=== PATIENT | male | born 1960 | race Caucasian/White ===

== ENCOUNTER 2017-10-05 11:10 | Emergency (ER) | payer BC ==
[2017-10-05] MEDS ORDERED: KETOROLAC 30 MG/ML INJ ONE (11:27)
[2017-10-05 12:16] LABS: Urine Blood TRACE (NEG); Urine Glucose NEGATIVE (NEG); Urine Protein NEGATIVE (NEG)
--- NOTE | 2017-10-05 12:19 | RAD REPORT ---
EXAM DESCRIPTION: CTSpine Lumbar Wo Con10/05/2017 11:54 am CLINICAL HISTORY: Back injury with back pain and radiculopathy status post fall from a ladder COMPARISON: None TECHNIQUE: Computed axial tomography lumbar spine was obtained with coronal and sagittal reconstruct ion. All CT scans are performed using dose optimization technique as appropriate and may include automated exposure control or mA/KV adjustment according to patient size. FINDINGS: Mild to moderate compression fracture involves the superior endplate of the L2 vertebral b regine. Retropulsion of fracture fragment into the spinal canal is not present. The posterior elements a re not involved. Compression of the vertebral body is estimated to be approximately 25% No dislocation is noted. Spinal stenosis is not seen IMPRESSION: Mild to moderate compression fracture involving the L2 vertebral body.
--- NOTE | 2017-10-05 12:30 | ER ---
Nurse's Notes [facility] Name: Dexter Rosen Age: 57 yrs Sex: Male : 1960 Arrival Date: 10/05/2017 Time: 11:12 Bed 6 Private MD: Diagnosis: Wedge compression fracture of second lumbar vertebra Presentation: 10/05 11:13 Presenting complaint: Patient states: "I fell off a roof about 10 ft, I landed on my aa5 hands and knees". pt denies head injury, denies LOC. Pt c/o lower back pain. Pt ambulated to triage. 11:13 Transition of care: patient was not received from another setting of care. Onset of aa5 symptoms was October 05, 2017. Risk Assessment: Do you want to hurt yourself or someone else? Patient reports no desire to harm self or others. Initial Sepsis Screen: Does the patient meet any 2 criteria? No. Patient's initial sepsis screen is negative. Does the patient have a suspected source of infection? No. Patient's initial sepsis screen is negative. Care prior to arrival: None. 11:13 Method Of Arrival: Ambulatory aa5 11:13 Acuity: KAMLESH 3 aa5 11:38 Mechanism of Injury: Fall from ladder approximately 10 feet. jl7 11:38 Trauma event details: Injury occurred in the [facility], Injury occurred: at [facility]. Injury occurred: October 05, 2017 Injury occurred at: 10:00. Triage Assessment: 11:35 General: Appears in no apparent distress. uncomfortable, Behavior is calm, cooperative, jl7 appropriate for age. Pain: Complains of pain in low back area Pain currently is 8 out of 10 on a pain scale. Neuro: Level of Consciousness is awake, alert, obeys commands, Oriented to person, place, time, situation, Conche Operator are equal bilaterally Moves all extremities. Gait is steady. Cardiovascular: Patient's skin is warm and dry. Respiratory: Airway is patent Respiratory effort is even, unlabored, Respiratory pattern is regular, symmetrical. GI: No signs and/or symptoms were reported involving the gastrointestinal system. : No signs and/or symptoms were reported regarding the genitourinary system. Derm: Skin is pink, warm \\T\\ dry. Musculoskeletal: Range of motion: intact in all extremities. Trauma Activation: Not Applicable Physician: ED Physician; Name: ; Notified At: ; Arrived At: Physician: General Surgeon; Name: ; Notified At: ; Arrived At: Physician: Radiology; Name: ; Notified At: ; Arrived At: Physician: Respiratory; Name: ; Notified At: ; Arrived At: Physician: Lab; Name: ; Notified At: ; Arrived At: Historical: - Allergies: 11:13 Tylenol; aa5 - PMHx: 11:13 None; aa5 - PSHx: 11:13 None; aa5 - Immunization history:: Adult Immunizations up to date. - Social history:: Smoking status: Patient/guardian denies using tobacco. - Immunization history: Last tetanus immunization: unknown. - Ebola Screening: : No symptoms or risks identified at this time. Screenin:15 Abuse screen: Denies threats or abuse. Denies injuries from another. Tuberculosis jl7 screening: No symptoms or risk factors identified. 11:15 Nutritional screening: No deficits noted. Fall Risk Gait- Impaired (20 pts.). Total jl7 Cortes Fall Scale indicates No Risk (0-24 pts). Primary Survey: 11:15 A: Airway: patent. Breathing/Chest: Respiratory pattern: regular, Respiratory effort: jl7 spontaneous, unlabored, Breath sounds: clear, Chest inspection: symmetrical rise and fall of the chest. Circulation: Heart tones present. Skin color: pink. Disability Alert. 11:30 Reassessment Airway Airway Patent Breathing/Chest Respiratory pattern Regular jl7 Respiratory effort Spontaneous Unlabored Circulation Heart tones Present Pulses Palpable Color [place] Disability Alert. Secondary Survey: 11:30 HEENT: No deficits noted. Gastrointestinal: No deficits noted. : No deficits noted. jl7 Musculoskeletal: Tenderness present in low back area. Assessment: 11:15 General: See triage and trauma charting. jl7 12:15 Reassessment: Patient appears in no apparent distress at this time. Patient and/or jl7 family updated on plan of care and expected duration. Pain level reassessed. Patient is alert, oriented x 3, equal unlabored respirations, skin warm/dry/pink. 12:40 Reassessment: Pt reports decreased pain at this time. jl7 Vital Signs: 11:15 BP 136 / 84; Pulse 94; Resp 16 S; Pulse Ox 98% on R/A; Pain 8/10; jl7 [place] Coma Score: 11:15 Eye Response: spontaneous(4). Verbal Response: oriented(5). Motor Response: obeys jl7 commands(6). Total: 15. Trauma Score (Adult): 11:15 Eye Response: spontaneous(1); Verbal Response: oriented(1); Motor Response: obeys jl7 commands(2); Systolic BP: > 89 mm Hg(4); Respiratory Rate: 10 to 29 per min(4); [place] Score: 15; Trauma Score: 12 ED Course: 11:12 Patient arrived in ED. rg4 11:13 Arm band placed on Patient placed in an exam room, on a stretcher. aa5 11:15 Bimal Otero, RN is Primary Nurse. hj 11:15 Patient has correct armband on for positive identification. Placed in gown. Bed in low jl7 position. Call light in reach. Side rails up X 1. 11:15 Pulse ox on. NIBP on. jl7 11:15 Patient maintains SpO2 saturation greater than 95% on room air. Thermoregulation: warm jl7 blanket given to patient. 11:17 Concha Babcock FNP-C is PHCP. snw 11:17 Israel Weathers MD is Attending Physician. snw 11:18 PHCP role handed off by Concha Babcock FNP-C kb 11:18 Nadia Mayes FNP-C is PHCP. kb 11:19 Triage completed. aa5 11:27 Luci Blakely, HERO is Primary Nurse. jl7 11:53 CT completed. Patient tolerated procedure well. Patient moved back from CT. bq 11:53 CT Lumbar Spine Wo Con In Process Unspecified. EDMS 12:58 No provider procedures requiring assistance completed. Patient did not have IV access jl7 during this emergency room visit. Administered Medications: 11:28 Drug: TORadol 60 mg Route: IM; Site: left gluteus; jl7 12:59 Follow up: Response: No adverse reaction; Pain is decreased jl7 Intake: 12:57 PO: 0ml; IV: 0ml; Tubes: 0ml (); Total: 0ml. jl7 Output: 12:57 Urine: 100ml (Voided); Total: 100ml. jl7 Outcome: 12:28 Discharge ordered by . kb 12:57 Patient's length of stay was not longer than 2 hours. jl7 12:57 Discharged to home ambulatory. jl7 12:57 Condition: stable 12:57 Discharge instructions given to patient, family, Instructed on discharge instructions, follow up and referral plans. medication usage, Demonstrated understanding of instructions, follow-up care, medications, Prescriptions given X 1. 12:59 Patient left the ED. jl7 Signatures: Dispatcher [employer] EDMS Nadia Mayes, BACKEND PYTHON DEVELOPER-C BACKEND PYTHON DEVELOPER-Ckb Concha Babcock, BACKEND PYTHON DEVELOPER-C BACKEND PYTHON DEVELOPER-Csnw Muna Augustin Audri, RN RN aa5 Bimal Otero RN RN hj Garcia, Rubi rg4 Luci Blakely RN RN jl7
--- NOTE | 2017-10-05 12:30 | EDPHYS ---
Physician Documentation [facility] Name: Dexter Rosen Age: 57 yrs Sex: Male : 1960 Arrival Date: 10/05/2017 Time: 11:12 Bed 6 Private MD: ED Physician Israel Weathers HPI: 10/05 11:23 This 57 yrs old Male presents to ER via Ambulatory with complaints of Fall kb Injury. 11:23 Details of fall: The patient fell from a height, off a roof, approximately 10 feet, in kb a freefall-type manner. Onset: The symptoms/episode began/occurred just prior to arrival. Associated injuries: The patient sustained injury to the low back, pain, pain with movement, tenderness. Severity of symptoms: At their worst the symptoms were moderate, in the emergency department the symptoms are unchanged. The patient has not experienced similar symptoms in the past. The patient has not recently seen a physician. Pt states he has been getting up on and down from the roof this morning. The last time he had one hand full and missed the step on the ladder falling to the ground. States he landed on his knees then hands. c/o low back pain. Historical: - Allergies: 11:13 Tylenol; aa5 - PMHx: 11:13 None; aa5 - PSHx: 11:13 None; aa5 - Immunization history:: Adult Immunizations up to date. - Social history:: Smoking status: Patient/guardian denies using tobacco. - Immunization history: Last tetanus immunization: unknown. - Ebola Screening: : No symptoms or risks identified at this time. ROS: 11:21 Constitutional: Negative for fever, chills, and weight loss, Cardiovascular: Negative kb for chest pain, palpitations, and edema, Respiratory: Negative for shortness of breath, cough, wheezing, and pleuritic chest pain, Abdomen/GI: Negative for abdominal pain, nausea, vomiting, diarrhea, and constipation, : Negative for injury, bleeding, discharge, and swelling, MS/Extremity: Negative for injury and deformity, Skin: Negative for injury, rash, and discoloration, Neuro: Negative for headache, weakness, numbness, tingling, and seizure. 11:21 Back: Positive for pain at rest, pain with movement, of the low back area, Negative for injury or acute deformity, decreased range of motion, radiated pain. Exam: 11:21 Constitutional: This is a well developed, well nourished patient who is awake, alert, kb and in no acute distress. Head/Face: Normocephalic, atraumatic. Chest/axilla: Normal chest wall appearance and motion. Nontender with no deformity. No lesions are appreciated. Cardiovascular: Regular rate and rhythm with a normal S1 and S2. No gallops, murmurs, or rubs. Normal PMI, no JVD. No pulse deficits. Respiratory: Lungs have equal breath sounds bilaterally, clear to auscultation and percussion. No rales, rhonchi or wheezes noted. No increased work of breathing, no retractions or nasal flaring. Abdomen/GI: Soft, non-tender, with normal bowel sounds. No distension or tympany. No guarding or rebound. No evidence of tenderness throughout. MS/ Extremity: Pulses equal, no cyanosis. Neurovascular intact. Full, normal range of motion. Neuro: Awake and alert, GCS 15, oriented to person, place, time, and situation. Cranial nerves II-XII grossly intact. Motor strength 5/5 in all extremities. Sensory grossly intact. Cerebellar exam normal. Normal gait. 11:21 Back: pain, that is moderate, of the low back area, ROM is painful, with all movement, normal spinal alignment noted, vertebral tenderness, is appreciated at L4 and L5. 11:30 Skin: slight redness noted to bilateral knees. Vital Signs: 11:15 BP 136 / 84; Pulse 94; Resp 16 S; Pulse Ox 98% on R/A; Pain 8/10; jl7 [place] Coma Score: 11:15 Eye Response: spontaneous(4). Verbal Response: oriented(5). Motor Response: obeys jl7 commands(6). Total: 15. Trauma Score (Adult): 11:15 Eye Response: spontaneous(1); Verbal Response: oriented(1); Motor Response: obeys jl7 commands(2); Systolic BP: > 89 mm Hg(4); Respiratory Rate: 10 to 29 per min(4); [place] Score: 15; Trauma Score: 12 MDM: 11:18 Patient medically screened. 11:21 Data reviewed: vital signs, nurses notes. Data interpreted: Pulse oximetry: on room air kb is 100 %. Interpretation: normal. 12:25 Counseling: I had a detailed discussion with the patient and/or guardian regarding: the kb historical points, exam findings, and any diagnostic results supporting the discharge/admit diagnosis, radiology results, the need for outpatient follow up, a family practitioner, to return to the emergency department if symptoms worsen or persist or if there are any questions or concerns that arise at home. 12:29 ED course: Pt doesn't not want anything for pain at home. States "I will just take kb aleve.". 10/05 11:45 Order name: Urine Dipstick--Ancillary (enter results); Complete Time: 12:18 bd 10/05 11:19 Order name: CT Lumbar Spine Wo Con; Complete Time: 12:22 kb 10/05 11:26 Order name: Urine Dipstick-Ancillary (obtain specimen); Complete Time: 11:43 kb Administered Medications: 11:28 Drug: TORadol 60 mg Route: IM; Site: left gluteus; jl7 12:59 Follow up: Response: No adverse reaction; Pain is decreased jl7 Disposition: 16:11 Co-signature as Attending Physician, Israel Weathers MD. Disposition: 10/05/17 12:28 Discharged to Home. Impression: Wedge compression fracture of second lumbar vertebra. - Condition is Stable. - Discharge Instructions: Spinal Compression Fracture. - Prescriptions for Tramadol 50 mg Oral Tablet - take 1 tablet by ORAL route every 8 hours as needed; 12 tablet. - Medication Reconciliation Form, Thank You Letter, Antibiotic Education, Prescription Opioid Use form. - Follow up: Emergency Department; When: As needed; Reason: Worsening of condition. Follow up: Private Physician; When: 2 - 3 days; Reason: Recheck today's complaints, Continuance of care, Re-evaluation by your physician. Signatures: Dispatcher [employer] EDMS Nadia Mayes, MATEOC JAM-Mckenzie Hector RN RN [email or web address] Luci Blakely RN RN jl7 Israel Weathers MD MD Corrections: (The following items were deleted from the chart) 11:22 11:21 Back: pain, that is moderate, of the low back area, ROM is painful, with all kb movement, normal spinal alignment noted, kb 11:30 11:21 Constitutional: This is a well developed, well nourished patient who is awake, kb alert, and in no acute distress. Head/Face: Normocephalic, atraumatic. Chest/axilla: Normal chest wall appearance and motion. Nontender with no deformity. No lesions are appreciated. Cardiovascular: Regular rate and rhythm with a normal S1 and S2. No gallops, murmurs, or rubs. Normal PMI, no JVD. No pulse deficits. Respiratory: Lungs have equal breath sounds bilaterally, clear to auscultation and percussion. No rales, rhonchi or wheezes noted. No increased work of breathing, no retractions or nasal flaring. Abdomen/GI: Soft, non-tender, with normal bowel sounds. No distension or tympany. No guarding or rebound. No evidence of tenderness throughout. Skin: Warm, dry with normal turgor. Normal color with no rashes, no lesions, and no evidence of cellulitis. MS/ Extremity: Pulses equal, no cyanosis. Neurovascular intact. Full, normal range of motion. Neuro: Awake and alert, GCS 15, oriented to person, place, time, and situation. Cranial nerves II-XII grossly intact. Motor strength 5/5 in all extremities. Sensory grossly intact. Cerebellar exam normal. Normal gait. kb 12:59 12:28 10/05/2017 12:28 Discharged to Home. Impression: Wedge compression fracture of jl7 second lumbar vertebra. Condition is Stable. Forms are Medication Reconciliation Form, Thank You Letter, Antibiotic Education, Prescription Opioid Use. Follow up: Emergency Department; When: As needed; Reason: Worsening of condition. Follow up: Private Physician; When: 2 - 3 days; Reason: Recheck today's complaints, Continuance of care, Re-evaluation by your physician. kb
== END 2017-10-05 12:59 | disposition home or self-care (01) ==
LOC: ER 11:10
DX: S32.020A Wedge compression fracture of second lumbar vertebra, initial encounter for closed fracture (principal); W13.2XXA Fall from, out of or through roof, initial encounter; Y93.89 Activity, other specified; Y92.018 Other place in single-family (private) house as the place of occurrence of the external cause; Z88.6 Allergy status to analgesic agent
CPT/HCPCS: 72131; 81003; 96372; 99284